=== PATIENT | female | born 1990 | race African-American/Black ===

== ENCOUNTER 2022-10-03 09:50 | Emergency (ER) | payer OTHER ==
[2022-10-03 10:01] VITALS: BP 122/69; PULSE 105; RESP 20; TEMP 98.3; BMI 37.5
== END 2022-10-03 11:04 | disposition home or self-care (01) ==
LOC: JERFT 09:50
PROC: 0HQWXZZ Repair Right Nipple, External Approach (ICD-10-PCS; principal; 2022-10-03)
DX: S21.011A Laceration without foreign body of right breast, initial encounter (principal); X58.XXXA Exposure to other specified factors, initial encounter
CPT/HCPCS: 99282-25

== ENCOUNTER 2022-10-10 03:03 | Emergency (ER) | payer OTHER ==
[2022-10-10 03:18] VITALS: BP 126/84; PULSE 87; RESP 20; TEMP 97.8; BMI 31.3
[2022-10-10] MEDS ORDERED: LIDOCAINE 2.5%/PRILOCAINE 2.5% 30 GRAM TUBE TP ONE (03:29)
[2022-10-10] MEDS ORDERED: LIDOCAINE 2.5%/PRILOCAINE 2.5% (5 Gram/TUBE) TP ONE (03:29)
[2022-10-10] MEDS ORDERED: CEPHALEXIN MONOHYDRATE 500 MG CAPSULE (UD) PO ONE (04:22)
[2022-10-10] MEDS ORDERED: CEPHALEXIN MONOHYDRATE 500 MG CAPSULE (UD) ONE (04:28)
== END 2022-10-10 04:32 | disposition home or self-care (01) ==
LOC: JER 03:03
PROC: [UNRECOGNIZED PROCEDURE] (principal; 2022-10-10)
DX: S21.011A Laceration without foreign body of right breast, initial encounter (principal); W23.1XXA Caught, crushed, jammed, or pinched between stationary objects, initial encounter
CPT/HCPCS: 87070; 87186; 87205; 99283-25